=== PATIENT | male | born 1955 | race Hispanic/Latino ===

== ENCOUNTER 2020-09-22 13:49 | Emergency (ER) | payer OTHER ==
[~2020-09-22] VITALS: Ht 162.6 cm; Wt 63.5 kg
--- OUTSIDE RECORDS SUMMARY | 2020-09-22 14:45 | XMS REPORT | Continuity of Care Document ---
Author Author [facility] [place] [place] Organization [facility] [place] [place] Address 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 Family History Family Member Diagnosis Comments Start Date Stop Date Source Natural mother Parkinsonism [facility] Social History Social Habit Start Date Stop Date Quantity Comments Source Sex Assigned At [facility] Alcohol intake 2019-04-16 00:00:00 2019-04-16 00:00:00 Current non-drinker of alcohol (finding) [facility] SDOH Food Worry 2017-07-24 00:00:00 2017-07-24 00:00:00 1 [facility] Food Scarcity 2017-07-24 00:00:00 2017-07-24 00:00:00 1 [facility] Smoking Status Start Date Stop Date Source Never smoker [facility] Medications Ordered Medication Name Filled Medication Name Start Date Stop Da te Current Medication? Ordering Clinician Indication Dosage Frequency Signature (SIG) Comments Components Source lisinopril (PRINIVIL, ZESTRIL) 5 mg tablet 2017-05-10 00:00: 00 Yes Essential hypertension, benign 5mg 5 mg. [facility] atorvastatin (LIPITOR) 40 mg tablet 2017-05-10 00:00:00 Yes Dyslipidemia 40mg Take 40 mg by mouth at bedtime nightly. [facility] Immunizations Ordered Immunization Name Filled Immunization Name Date Status Comments Source Tdap (Tetanus Toxoid, Reduced Diphtheria Toxoid And Acellular Pertussis, Absorbed) 2017-07-24 00:00:00 Completed [facility] Procedures This patient has no known procedures. Plan of Care Planned Activity Planned Date Details Comments Source Future Scheduled Test 2020 00:00:00 IMM Pneumococcal A ge 65 and Up [code = IMM Pneumococcal Age 65 and Up] [facility] Scheduled Test 2020-08-12 00:00:00 IMM Influenza Seas onal Aug to January (>/= 19 yrs) [code = IMM Influenza Seasonal Aug to January (>/= 19 yrs)] [facility] Scheduled Test 2018-07-27 00:00:00 Screening for rosemary gnant neoplasm of colon (procedure) [code = [id number]] [facility] Encounters Start Date/Time End Date/Time Encounter Type Admission Type [facility] Care Department Encounter ID Source 2017-09-27 00:00:00 2017-09-27 00:00:[address] [facility] [id number] [facility] 2017-08-23 00:00:00 2017-08-23 00:00:[address] [facility] [id number] [facility] 2017-08-10 00:00:00 2017-08-10 00:00:[address] [facility] [id number] [facility] 2017-07-31 11:57:05 2017-07-31 11:57:[address] [facility] [id number] [facility] 2017-07-31 10:30:41 2017-07-31 10:30:[address] [facility] [id number] [facility] 2017-07-27 17:17:37 2017-07-27 17:17:[address] [facility] [id number] [facility] 2017-07-24 09:51:12 2017-07-24 09:51:[address] [facility] [id number] [facility] Results This patient has no known results.
--- OUTSIDE RECORDS SUMMARY | 2020-09-22 14:45 | XMS REPORT | Clinical Summary ---
Author Author [facility] Organization [facility] Address Unknown Phone Unavailable Care Team Providers Care Operations Superintendent Name Role Phone PCP Unavailable Allergies No Known Allergies Medications End Date Status Medication Sig Dispensed Refills Start Date Active lisinopril (PRINIVIL, 5 mg. 0 05/10/20 1 ZESTRIL) 5 mg 7 tabletIndications: Essential hypertension, benign Active atorvastatin (LIPITOR) 40 Take 40 mg by 1 04/13 9/201 mg tabletIndications: mouth at 7 Dyslipidemia bedtime nightly. Active Problems Problem Noted Date Essential hypertension, benign 07/24/2017 Dyslipidemia 07/24/2017 Immunizations Name Administration Dates Next Due Tdap (Tetanus Toxoid, 07/24/2017 Reduced Diphtheria Toxoid And Acellular Pertussis, Absorbed) Family History Medical History Relation Name Comments Parkinsonism Mother Relation Name Status Comments Brother Alive Brother Alive Brother Alive Brother Alive Daughter Alive Father Maternal Grandfather Maternal Grandmother Mother Paternal Grandfather Paternal Grandmother Sister Alive Sister Alive Sister Alive Sister Alive Son Alive Son Alive Son Alive Social History Date Tobacco Use Types Packs/Day Years Used Never Smoker Smokeless Tobacco: Never Used Tobacco Cessation: Counseling Given: No Drinks/Week oz/Week Comments Alcohol Use No Food Insecurity Answer Date Recorded Within the past 12 months, you worried that your Never david e 07/24/2017 food would run out before you got money to buy more. Within the past 12 months, the food you bought Never true 07/24/2017 just didn't last and you didn't have mo amberly to get more. Sex Assigned at Date Recorded Not on file Industry Job Start Date Occupation Not on file Not on file Not on file Travel End Travel History Travel Start No recent travel history available. Last Filed Vital Signs Not on file Plan of Treatment Health Maintenance Due Date Last Done Comments Colorectal Cancer Scrn 07/27/2018 07/27/2017 Annual (FIT/FOBT) Age 50 to 75 IMM Influenza Seasonal 08/12/2020Aug to January (>/= 19 yrs) IMM Pneumococcal Age 65 2020 and Up Results Not on fileafter 09/22/2019
[2020-09-22] MEDS ORDERED: CORTISPORIN-TC10 M1 LEFT EAR ×2 (14:53→15:06)
--- NOTE | 2020-09-22 15:01 | Emergency Department Note ---
History of Present Illnes History of Present Illness Chief Complaint: Eye, Ear, Nose, Throat, Dental History of Present Illness This is a 65 year old male Chief Complaint Comment PATIENT IN FROM HOME WITH COMPLAINTS OF LEFT EAR PAIN X 2 WEEKS; STATES HE TRIED DROPS, BUT THEY DID NOT HELP; RATES PAIN 8/10. 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 Any updates have been documented here. Past Medical History Recent Fever: No Clinical Suspicion of Infectio: No New/Unexplained Change in Ment: No Past Medical History: None Past Surgical History: None Social History Physically hurt or threatened: No Review of Systems Review of Systems Constitutional: Reports no symptoms EENTM: Reports as per HPI Cardiovascular: Reports no symptoms Respiratory: Reports no symptoms Gastrointestinal: Reports no symptoms Genitourinary: Reports no symptoms Musculoskeletal: Reports no symptoms Integumentary: Reports no symptoms Neurological: Reports no symptoms Psychological: Reports no symptoms Endocrine: Reports no symptoms Hematological/Lymphatic: Reports no symptoms Physical Exam Related Data Allergies: Coded Allergies: No Known Allergies (Unverified , 09/22/20) Triage Vital Signs Vital Signs Date Time Temp Pulse Resp B/P (MAP) Pulse Ox O2 Delivery O2 Flow Rate FiO2 09/22/20 14:22 98.6 62 20 127/83 99 Room Air Vital signs reviewed: Yes Physical Exam CONSTITUTIONAL Constitutional: Present well-developed, Present well-nourished HENT HENT: Present normocephalic, Present atraumatic, Present oropharynx clear/moist, Present nose normal HENT L/R: Present left TM normal, Present right TM normal, Present right canal normal, Present left ext ear normal, Present right ext ear normal; Absent left canal normal (White debris in L EAC) EYES Eyes: Reports PERRL, Reports conjunctivae normal NECK Neck: Present ROM normal PULMONARY Pulmonary: Present effort normal, Present breath sounds normal CARDIOVASCULAR Cardiovascular: Present regular rhythm, Present heart sounds normal, Present capillary refill normal, Present normal rate GASTROINTESTINAL Abdominal: Present soft, Present nontender, Present bowel sounds normal GENITOURINARY Genitourinary: Present exam deferred SKIN Skin: Present warm, Present dry MUSCULOSKELETAL Musculoskeletal: Present ROM normal NEUROLOGICAL Neurological: Present alert, Present oriented x 3, Present no gross motor or sensory deficits PSYCHOLOGICAL Psychological: Present mood/affect normal, Present judgement normal Assessment & Plan Medical Decision Making MDM 65 y.o M presents for L ear pain. Exam shows debris in R EAC. TM's normal. He has an ENT doctor. Diagnosis favors Otitis Externa. Will Rx Cortisporin Ear drops and he will f/u w/ ENT doctor. Appropriate for DC. Assessment & Plan Final Impression: (1) Otitis externa Depart Disposition: HOME, SELF-CARE Last Vital Signs Date Time Temp Pulse Resp B/P (MAP) Pulse Ox O2 Delivery O2 Flow Rate FiO2 09/22/20 14:22 98.6 62 20 127/83 99 Room Air Home Meds Active Scripts Neomyc/Colist/Hydrocort/Thonzn (Cortisporin-Tc Ear Suspension) 10 Ml Drops.susp, 4 DROP LEFT EAR BID for 10 Days, #10 ML 0 Refills Prov:WANG KO MD 09/22/20 WANG KO MD Sep 22, 2020 15:01
[2020-09-22 15:20] VITALS: BP 137/82
== END 2020-09-22 15:21 | disposition home or self-care (01) ==
LOC: ER 14:43
DX: H60.92 Unspecified otitis externa, left ear (principal)
CPT/HCPCS: 99282